=== PATIENT | female | born 2000 | race Caucasian/White ===

== ENCOUNTER 2024-03-06 22:17 | Emergency (ER) | payer BC, MEDICAID ==
[~2024-03-06] VITALS: Ht 152.4 cm; Wt 148.3 kg
[~2024-03-06 22:17] MED LIST: CLIN-97 PO
[2024-03-06] MEDS ORDERED: ALBU8HFA INH (23:29)
[2024-03-06] MEDS ORDERED: PRED20TA PO (23:29)
[2024-03-06] MEDS ORDERED: PROM118S5 PO (23:29)
[2024-03-06] MEDS: dexamethasone sod phosphate 10mg/ml inj IM STA (23:48)
[2024-03-06 23:58] VITALS: BP 131/86; TEMP 97.4
[2024-03-07] MEDS: ipratropium/albuterol 3ml nebule NEB ONE (00:25)
[2024-03-07 00:26] VITALS: PULSE 76; RESP 20; O2SAT 99
[2024-03-07 00:35] VITALS: PULSE 108; RESP 20; O2SAT 100
== END 2024-03-07 00:42 | disposition home or self-care (01) ==
LOC: ER 22:17
DX: J45.909 Unspecified asthma, uncomplicated (principal)
CPT/HCPCS: 71045; 93005; 94640; 94760; 96372; 99283; J1100